=== PATIENT | female | born 1975 | race Caucasian/White ===

== ENCOUNTER 2019-01-25 09:11 | Inpatient (IN) ==
[2019-01-25] MEDS ORDERED: Aspirin 81 MG TAB.CHEW PO STA (09:27)
[2019-01-25] MEDS ORDERED: Nitroglycerin 0.4 MG TAB.SUBL SL PRN (09:27)
[2019-01-25 10:35] LABS: Basophils # 0.1 K/mcL (0.0-0.2); Basophils % 0.5 %; Eosinophils # 0.2 K/mcL (0.0-0.6); Eosinophils % 1.6 %; Hematocrit 43.6 % (35.3-44.9); Immature Granulocytes % 0.2 % (0-4); Lymphocytes # 1.7 K/mcL (0.6-4.6); Lymphocytes % 16.7 %; Mean Corpuscular HGB Conc 32.1 g/dL (31.6-35.5); Mean Corpuscular Hemoglobin 28.6 pg (28.0-33.3); Mean Corpuscular Volume 89.2 fL (83.0-100.0); Mean Platelet Volume 12.1 fL (9.4-12.4); Monocytes # 0.5 K/mcL (0.0-1.3); Monocytes % 5.2 %; Neutrophils # 7.9 K/mcL (1.6-8.9); Platelet Count 273 K/mcL (140-400); Red Blood Count 4.89 M/mcL (3.82-4.97); Red Cell Distribution Width 13.9 % (11.5-14.5); Segmented Neutrophils % 75.8 %; White Blood Count 10.4 K/mcL (4.3-11.1)
[2019-01-25 10:54] LABS: BUN/Creatinine Ratio 11 (6-26); Blood Urea Nitrogen 11 mg/dL (6-20); Calcium 9.5 mg/dL (8.6-10.3); Carbon Dioxide 25 mEq/L (23-29); Chloride 109 mEq/L (98-107); Glucose 118 mg/dL (70-105); Magnesium 1.7 mg/dL (1.6-2.6); Osmolality,Calculated 286 (280-300); Potassium 3.4 mEq/L (3.5-5.1); Sodium 138 mEq/L (136-145); eGFR For African Americans > 60 (> 60); eGFR For Non-African Americans 59 (> 60)
[2019-01-25 11:13] LABS: Troponin I 0.08 ng/mL (< 0.04)
[2019-01-25] MEDS ORDERED: *HR* Heparin 5,000 UNIT/ML VIAL IVP PRN ×2 (11:25)
[2019-01-25] MEDS ORDERED: *HR* Heparin 5,000 UNIT/ML VIAL IVP ONE (11:25)
[2019-01-25 11:42] LABS: Prothrombin Time 11.1 Seconds (9.4-12.1)
[2019-01-25 11:45] LABS: Activated Partial Thrombo Time 33.6 Seconds (26.0-36.0)
[2019-01-25] MEDS: Heparin 25,000 UNIT/250 ML D5W 25,000 UNIT/250 ML IV.SOLN IVC SCH (12:52)
[2019-01-25] MEDS ORDERED: Naloxone 0.4 MG/ML INJ IVP PRN (13:13)
[2019-01-25] MEDS: Nicotine 14 MG PATCH.TD24 TD SCH (15:51)
[2019-01-26 02:15] LABS: Basophils % 0.4 %; Eosinophils # 0.2 K/mcL (0.0-0.6); Eosinophils % 2.2 %; Hematocrit 41.8 % (35.3-44.9); Hemoglobin 13.5 g/dL (11.5-15.4); Immature Granulocytes % 0.6 % (0-4); Lymphocytes # 3.7 K/mcL (0.6-4.6); Lymphocytes % 35.4 %; Mean Corpuscular HGB Conc 32.3 g/dL (31.6-35.5); Mean Corpuscular Hemoglobin 28.3 pg (28.0-33.3); Mean Corpuscular Volume 87.6 fL (83.0-100.0); Mean Platelet Volume 12.3 fL (9.4-12.4); Monocytes # 0.7 K/mcL (0.0-1.3); Monocytes % 6.3 %; Neutrophils # 5.7 K/mcL (1.6-8.9); Platelet Count 273 K/mcL (140-400); Red Blood Count 4.77 M/mcL (3.82-4.97); Red Cell Distribution Width 14.1 % (11.5-14.5); Segmented Neutrophils % 55.1 %; White Blood Count 10.4 K/mcL (4.3-11.1)
[2019-01-26 02:33] LABS: BUN/Creatinine Ratio 10 (6-26); Blood Urea Nitrogen 10 mg/dL (6-20); Calcium 8.9 mg/dL (8.6-10.3); Carbon Dioxide 23 mEq/L (23-29); Chloride 106 mEq/L (98-107); Chol/HDL Ratio 5.9 (0-4.9); Cholesterol 158 mg/dL (< 200); Glucose 104 mg/dL (70-105); HDL Cholesterol 27 mg/dL (40-59); LDL Cholesterol,Calculated 89 mg/dL (0-99); Osmolality,Calculated 285 (280-300); Potassium 3.4 mEq/L (3.5-5.1); Sodium 138 mEq/L (136-145); Triglycerides 212 mg/dL (< 150); eGFR For African Americans > 60 (> 60); eGFR For Non-African Americans 57 (> 60)
[2019-01-26 08:13] LABS: Estimated Average Glucose 128 mg/dl
[2019-01-26] MEDS: Aspirin Enteric Coated 81 MG Tablet PO SCH (08:31)
[2019-01-26] MEDS: Nicotine 14 MG PATCH.TD24 TD SCH (08:32)
[2019-01-26] MEDS: Famotidine 20 MG TABLET PO SCH ×2 (08:59→20:41)
[2019-01-26] MEDS: Heparin 25,000 UNIT/250 ML D5W 25,000 UNIT/250 ML IV.SOLN IVC SCH (11:46)
[2019-01-26] MEDS ORDERED: Acetaminophen 325 MG TABLET PO PRN (13:52)
[2019-01-26] MEDS ORDERED: Nitroglycerin 1,000 MCG/10 ML VIAL IV ONE (14:40)
[2019-01-26] MEDS ORDERED: Heparin 1,000 UNITS/500 mL 500 ML ONE (14:40)
[2019-01-26] MEDS ORDERED: 0.9 % Sodium Chloride 1,000 ML ONE ×2 (14:40→15:13)
[2019-01-26] MEDS ORDERED: *HR* Heparin 10,000 UNIT/10 ML VIAL ONE (14:40)
[2019-01-26] MEDS ORDERED: ISOVUE-370 200 ML INFUS..BTL ONE (14:40)
[2019-01-26] MEDS ORDERED: Verapamil 5 MG/2 ML VIAL ONE (14:40)
[2019-01-26] MEDS ORDERED: *HR* FentaNYL (PF) 100 MCG/2 ML VIAL ONE (15:12)
[2019-01-26] MEDS ORDERED: *HR* Midazolam HCl 2 MG/2 ML VIAL ONE (15:12)
[2019-01-26] MEDS ORDERED: *HR* LORazepam 0.5 MG TABLET PO PRN (18:59)
[2019-01-27] MEDS: Famotidine 20 MG TABLET PO SCH ×2 (08:50→21:11)
[2019-01-27] MEDS: Nicotine 14 MG PATCH.TD24 TD SCH (08:50)
[2019-01-27] MEDS: Aspirin Enteric Coated 81 MG Tablet PO SCH (08:50)
[2019-01-27] MEDS: Heparin 25,000 UNIT/250 ML D5W 25,000 UNIT/250 ML IV.SOLN IVC SCH (10:37)
[2019-01-27] MEDS ORDERED: 0.9 % Sodium Chloride 2,000 ML ONE (13:35)
[2019-01-27] MEDS ORDERED: *HR* Heparin 10,000 UNIT/10 ML VIAL ONE (13:36)
[2019-01-27] MEDS ORDERED: Heparin 1,000 UNITS/500 mL 500 ML ONE (13:36)
[2019-01-27] MEDS ORDERED: ISOVUE-370 200 ML INFUS..BTL ONE (13:36)
[2019-01-27] MEDS ORDERED: Nitroglycerin 1,000 MCG/10 ML VIAL IV ONE (13:36)
[2019-01-27] MEDS ORDERED: *HR* Midazolam HCl 2 MG/2 ML VIAL ONE (14:06)
[2019-01-27] MEDS ORDERED: *HR* Bivalirudin 250 MG VIAL IVC ONE ×2 (14:06→15:08)
[2019-01-27] MEDS ORDERED: *HR* FentaNYL (PF) 100 MCG/2 ML VIAL ONE (14:06)
[2019-01-27] MEDS ORDERED: *HR* Ticagrelor 90 MG TABLET ONE (15:24)
[2019-01-27] MEDS ORDERED: Nitroglycerin 25 MG/250 ML INFUS..BTL IVC ONE (15:26)
[2019-01-27] MEDS ORDERED: Nitroglycerin 25 MG/250 ML INFUS..BTL IVC SCH (18:15)
[2019-01-27] MEDS ORDERED: *HR* Atropine Sulfate 1 MG/10 ML SYRINGE ONE (19:58)
[2019-01-27] MEDS ORDERED: 0.9 % Sodium Chloride 1,000 ML ONE (19:58)
[2019-01-28] MEDS: Nicotine 14 MG PATCH.TD24 TD SCH (08:07)
[2019-01-28] MEDS: Aspirin Enteric Coated 81 MG Tablet PO SCH (08:07)
[2019-01-28] MEDS: Famotidine 20 MG TABLET PO SCH (08:07)
[2019-01-28 08:42] LABS: Basophils % 0.3 %; Eosinophils # 0.1 K/mcL (0.0-0.6); Hematocrit 43.1 % (35.3-44.9); Hemoglobin 14.3 g/dL (11.5-15.4); Immature Granulocytes % 0.3 % (0-4); Lymphocytes # 1.7 K/mcL (0.6-4.6); Lymphocytes % 16.5 %; Mean Corpuscular HGB Conc 33.2 g/dL (31.6-35.5); Mean Corpuscular Hemoglobin 28.7 pg (28.0-33.3); Mean Corpuscular Volume 86.4 fL (83.0-100.0); Mean Platelet Volume 11.4 fL (9.4-12.4); Monocytes # 0.9 K/mcL (0.0-1.3); Neutrophils # 7.3 K/mcL (1.6-8.9); Platelet Count 281 K/mcL (140-400); Red Blood Count 4.99 M/mcL (3.82-4.97); Red Cell Distribution Width 13.8 % (11.5-14.5); Segmented Neutrophils % 72.9 %; White Blood Count 10.1 K/mcL (4.3-11.1)
[2019-01-28 08:53] LABS: BUN/Creatinine Ratio 12 (6-26); Blood Urea Nitrogen 11 mg/dL (6-20); Calcium 9.1 mg/dL (8.6-10.3); Carbon Dioxide 22 mEq/L (23-29); Chloride 107 mEq/L (98-107); Glucose 98 mg/dL (70-105); Magnesium 1.8 mg/dL (1.6-2.6); Osmolality,Calculated 281 (280-300); Potassium 3.5 mEq/L (3.5-5.1); Sodium 136 mEq/L (136-145); eGFR For African Americans > 60 (> 60); eGFR For Non-African Americans > 60 (> 60)
[2019-01-28 11:06] VITALS: BP 148/93
[2019-01-28] MEDS ORDERED: FLU Vac QV 19-20 (6Month+)/PF 0.5 ML SYRINGE IM ONE (13:39)
== END 2019-01-28 14:52 | disposition home or self-care (01) | DRG 247 ==
LOC: 3BNU 09:11 → EMEROOARM 09:11 → SUATTDRO 12:15 → 3BNU 13:10 → 2NNU 01-27 15:59
PROVIDERS: ADMIT Internal Medicine; ATTEND Pharmacist